=== PATIENT | female | born 1940 | race Caucasian/White ===

== ENCOUNTER 2017-01-12 14:48 | Inpatient (IN) | payer MEDICARE ==
[~2017-01-12] VITALS: Ht 155 cm; Wt 86.2 kg
[2017-01-12 14:49] VITALS: BP 130/72
[2017-01-12 15:00] VITALS: BP 130/72
[2017-01-12 15:18] LABS: BASO # 0.1 10*3/uL (0.0-0.1); BASO % 0.5 % (0.0-1.0); EOS # 0.1 10*3/uL (0.0-0.4); EOS % 0.6 % (1.0-4.0); HEMATOCRIT 39.5 % (37.0-47.0); HEMOGLOBIN 13.3 g/dl (12.0-16.0); LYMPH # 2.4 10*3/uL (1.3-4.4); LYMPH % 22.1 % (27.0-41.0); MEAN CELL VOLUME 86.4 fl (81.0-99.0); MEAN CORPUSCULAR HGB 29.1 pg (27.0-31.0); MEAN CORPUSCULAR HGB CONC 33.7 g/dl (33.0-37.0); MEAN PLATELET VOLUME 8.9 fl (9.6-12.3); MONO % 8.9 % (3.0-9.0); NEUT # 7.3 10*3/uL (2.3-7.9); NEUT % 67.1 % (47.0-73.0); PLATELET COUNT AUTOMATED 306 10*3/uL (130-400); RED BLOOD COUNT 4.57 10*6/uL (4.10-5.10); RED CELL DISTRI WIDTH 15.9 % (0-14.5)
[2017-01-12 15:27] LABS: ACT PARTIAL THROMBO TIME 21.5 SECONDS (20.8-31.5); INTERNATIONAL NORM RATIO 0.9 (2.0-3.5)
[2017-01-12] MEDS ORDERED: LIPITOR20 MG PO (15:32)
[2017-01-12] MEDS ORDERED: ENALAPRIL10 MG PO (15:32)
[2017-01-12] MEDS ORDERED: INDAPAMIDE1.25 MG PO (15:32)
[2017-01-12] MEDS ORDERED: GABAPENTIN600 MG PO (15:33)
[2017-01-12] MEDS ORDERED: PREVACID15 M2 PO (15:34)
[2017-01-12] MEDS ORDERED: ASPIRIN325 M2 PO (15:34)
[2017-01-12] MEDS ORDERED: VIVELLE-DOT1 EAC1 T (15:35)
[2017-01-12] MEDS ORDERED: CALTRATE 600+D1 EACH PO (15:35)
[2017-01-12 16:00] VITALS: BP 142/93
[2017-01-12 16:05] LABS: ALBUMIN 3.4 gm/dl (3.1-4.5); ALKALINE PHOSPHATASE 80 U/L (45-117); BUN 26 mg/dl (7-24); CHLORIDE 94 mmol/L (98-107); CREATININE 1.08 mg/dL (0.55-1.02); SGOT/AST 15 IU/L (3-35); SGPT/ALT 20 U/L (12-78); SODIUM 131 mmol/L (136-145); TOTAL PROTEIN 6.7 gm/dL (6.4-8.2)
[2017-01-12 16:06] LABS: TROPONIN I < 0.015 ng/ml (<0.045)
[2017-01-12 16:37] LABS: BILIRUBIN NEGATIVE (NEGATIVE); BLOOD NEGATIVE (NEGATIVE); CLARITY CLEAR (CLEAR); COLOR YELLOW (YELLOW); GLUCOSE NEGATIVE (NEGATIVE); KETONE NEGATIVE (NEGATIVE); LEUKO ESTERASE 1+ (NEGATIVE); NITRITE NEGATIVE (NEGATIVE); PH 6.5 (5.0-9.0); UROBILINOGEN 0.2 E.U./dl (0.2-1.0)
[2017-01-12 16:44] LABS: BACTERIA TRACE; EPITHELIAL CELLS 31-40; RBC 0-2 rbc/hpf (0-2)
[2017-01-12 18:40] VITALS: BP 146/84
--- NOTE | 2017-01-12 18:50 | NUR ---
A 76, admitted to , under the services of ALMA ROSA Logan DO with a diagnosis of RENAL INSUFFICIENCY SYCOPE, PNEUOMIA. Chief complaint is BECAME HOT AND DIZZY AT REUNION AND PASSED OUT. Patient arrived via stretcher from ER. Monitor applied. Initial assessment completed. Vital signs taken and recorded. ALMA ROSA LOGAN DO notified of admission to the unit. Orders received. See assessment for past medical history, medications and allergies. Patient and/or family oriented to unit. [facility] reviewed. Clothing/patient valuable form completed. JAM RIVAS
--- NOTE | 2017-01-12 19:55 | NUR ---
patient resting in room call light in reach. no co at this time
[2017-01-12 20:00] VITALS: BP 129/71
[2017-01-13] VITALS: BP 129/71
[2017-01-13 04:00] VITALS: BP 129/71
--- NOTE | 2017-01-13 04:41 | NUR ---
PATIENT RESTING IN BED CALL LIGHT IN REACH DIANE WINCHESTER NO CO AT HTIS TIME
[2017-01-13 05:51] LABS: BASO % 0.4 % (0.0-1.0); EOS # 0.1 10*3/uL (0.0-0.4); EOS % 1.1 % (1.0-4.0); HEMATOCRIT 36.3 % (37.0-47.0); HEMOGLOBIN 11.7 g/dl (12.0-16.0); LYMPH # 1.9 10*3/uL (1.3-4.4); LYMPH % 18.3 % (27.0-41.0); MEAN CELL VOLUME 87.9 fl (81.0-99.0); MEAN CORPUSCULAR HGB 28.3 pg (27.0-31.0); MEAN CORPUSCULAR HGB CONC 32.2 g/dl (33.0-37.0); MEAN PLATELET VOLUME 9.4 fl (9.6-12.3); MONO # 0.8 10*3/uL (0.1-1.0); MONO % 7.3 % (3.0-9.0); NEUT # 7.4 10*3/uL (2.3-7.9); NEUT % 72.2 % (47.0-73.0); PLATELET COUNT AUTOMATED 264 10*3/uL (130-400); RED BLOOD COUNT 4.13 10*6/uL (4.10-5.10); RED CELL DISTRI WIDTH 16.3 % (0-14.5); WHITE BLOOD COUNT 10.2 10*3/uL (4.8-10.8)
[2017-01-13 06:21] LABS: ALBUMIN 2.8 gm/dl (3.1-4.5); BUN 18 mg/dl (7-24); CHLORIDE 101 mmol/L (98-107); CHOLESTEROL 144 mg/dL (<200); CREATININE 0.74 mg/dL (0.55-1.02); HDL CHOLESTEROL 67 mg/dl (40-60); LDL CHOLESTEROL 69 mg/dL (9-159); MAGNESIUM 1.7 mg/dL (1.5-2.1); PHOSPHOROUS 2.7 mg/dL (2.5-4.9); SGOT/AST 12 IU/L (3-35); SGPT/ALT 17 U/L (12-78); SODIUM 134 mmol/L (136-145); TOTAL PROTEIN 5.5 gm/dL (6.4-8.2); TRIGLYCERIDES 42 mg/dl (<150); VLDL CHOLESTEROL 8 mg/dL (6-40)
[2017-01-13 06:27] LABS: ALKALINE PHOSPHATASE 68 U/L (45-117)
[2017-01-13 06:30] LABS: POTASSIUM 4.3 mmol/L (3.5-5.1)
[2017-01-13 06:36] LABS: VITAMIN D, 25-HYDROXY 39.4 ng/mL (30-100)
[2017-01-13 08:00] VITALS: BP 150/83
[2017-01-13] MEDS ORDERED: ZITHROMAX250 MG PO (10:16)
--- NOTE | 2017-01-13 11:20 | NUR ---
Discharge instructions reviewed with patient/family. Patient receptive and verbalizes understanding. Follow-up care arranged. Written instructions given to patient/family.HEPLOCK REMOVED AND TELEMETRY ACCOUNTED FOR. TIMOTHY KANG
== END 2017-01-13 11:20 | disposition home or self-care (01) | DRG 177 ==
LOC: ED 14:48 → EDHOLD 16:51 → 4E 17:46
PROVIDERS: Internal Medicine Nephrology; Physician Assistant; ADMIT Internal Medicine
DX: J15.6 Pneumonia due to other Gram-negative bacteria (principal); N17.0 Acute kidney failure with tubular necrosis; N39.0 Urinary tract infection, site not specified; E87.1 Hypo-osmolality and hyponatremia; J98.11 Atelectasis; E87.8 Other disorders of electrolyte and fluid balance, not elsewhere classified; E86.0 Dehydration; E87.6 Hypokalemia; Z96.659 Presence of unspecified artificial knee joint; B96.20 Unspecified Escherichia coli [E. coli] as the cause of diseases classified elsewhere; E78.00 Pure hypercholesterolemia, unspecified; E78.5 Hyperlipidemia, unspecified; K21.9 Gastro-esophageal reflux disease without esophagitis; E53.8 Deficiency of other specified B group vitamins; R60.0 Localized edema; N28.9 Disorder of kidney and ureter, unspecified; R73.9 Hyperglycemia, unspecified; D72.818 Other decreased white blood cell count; E66.01 Morbid (severe) obesity due to excess calories; I10 Essential (primary) hypertension; Z88.1 Allergy status to other antibiotic agents; Z79.82 Long term (current) use of aspirin; Z79.899 Other long term (current) drug therapy; Z86.73 Personal history of transient ischemic attack (TIA), and cerebral infarction without residual deficits; Z85.54 Personal history of malignant neoplasm of ureter; Z87.81 Personal history of (healed) traumatic fracture; Z98.891 History of uterine scar from previous surgery; Z90.710 Acquired absence of both cervix and uterus; Z98.1 Arthrodesis status; Z82.49 Family history of ischemic heart disease and other diseases of the circulatory system; Z83.3 Family history of diabetes mellitus; Z68.35 Body mass index [BMI] 35.0-35.9, adult